=== PATIENT | female | born 1985 | race Caucasian/White ===

== ENCOUNTER → 2018-09-03 | Outpatient (CLI) | payer MEDICAID | LOC: LAB FS 09:49 | PROVIDERS: ATTEND Pediatrics | DX: E28.2 Polycystic ovarian syndrome (principal) | CPT/HCPCS: 36415; 83001; 83525 ==

== ENCOUNTER 2020-09-15 16:56 | Emergency (ER) | payer MEDICAID ==
[~2020-09-15] VITALS: Ht 162.6 cm; Wt 95.3 kg
[2020-09-15] MEDS ORDERED: fentaNYL INJ 100 MCG/2 ML AMP IVP STA ×2 (17:14→18:21)
[2020-09-15] MEDS ORDERED: KETOROLAC 30 MG/ML VIAL IVP STA (17:14)
[2020-09-15] MEDS ORDERED: ONDANSETRON 4 MG/2 ML (SDV) Z0FRAN IVP ONE (17:15)
[2020-09-15] MEDS ORDERED: NS IV 1000 ML 1,000 ML IV ONE (17:15)
[2020-09-15 17:29] LABS: BASOPHILS % (AUTO) 0 % (0-10); EOSINOPHILS # (AUTO) 0.1 10^3/uL (0.0-0.3); EOSINOPHILS % (AUTO) 1 % (0-10); HEMATOCRIT 38 % (35-52); HEMOGLOBIN 12.5 G/DL (11.5-16.0); LYMPHOCYTES # (AUTO) 2.4 X 10^3 (1.0-4.0); LYMPHOCYTES % (AUTO) 19 % (12-44); MEAN CORPUSCULAR HEMOGLOBIN 27 PG (25-34); MEAN CORPUSCULAR HGB CONC 33 G/DL (32-36); MEAN CORPUSCULAR VOLUME 81 FL (80-99); MEAN PLATELET VOLUME 11.1 FL (7.4-10.4); MONOCYTES # (AUTO) 0.5 X 10^3 (0.0-1.0); MONOCYTES % (AUTO) 4 % (0-12); NEUTROPHILS # (AUTO) 9.5 X 10^3 (1.8-7.8); NEUTROPHILS % (AUTO) 76 % (42-75); PLATELET COUNT 336 10^3/uL (130-400); WHITE BLOOD COUNT 12.6 10^3/uL (4.3-11.0)
--- NOTE | 2020-09-15 17:31 | Diagnostic Imaging Report ---
PROCEDURE: CT head without contrast. TECHNIQUE: Multiple contiguous axial images were obtained through the brain without the use of intravenous contrast. Auto Exposure Controls were utilized during the CT exam to meet ALARA standards for radiation dose reduction. INDICATION: Headache. COMPARISON: No prior studies are available for comparison. The ventricles and sulci are within normal limits. No sulcal effacement or midline shift is identified. No acute intra-axial or extra-axial hemorrhage is detected. The visualized paranasal sinuses demonstrate mucosal thickening of the ethmoid air cells. IMPRESSION: No acute intracranial process is detected. Dictated by: Dictated on workstation # [id number]
[2020-09-15 17:44] LABS: ALBUMIN 4.3 GM/DL (3.2-4.5); BILIRUBIN,TOTAL 0.2 MG/DL (0.1-1.0); CALCIUM 9.2 MG/DL (8.5-10.1); CREATININE SERUM 0.82 MG/DL (0.60-1.30); TOTAL PROTEIN 8.1 GM/DL (6.4-8.2)
--- NOTE | 2020-09-15 17:44 | ED General ---
General Chief Complaint: Head/Cervical Problems Stated Complaint: HEADACHE; COVID+ Source of Information: Patient Exam Limitations: No Limitations History of Present Illness Date Seen by Provider: Sep 15, 2020 Time Seen by Provider: 17:03 Initial Comments Here with report of headache despite ibuprofen. She states that the headache is caused vomiting. She is Covid positive with symptoms starting approximately 10 days ago. States the headache is on the left side of her head and face. She has not been able to keep anything down with the headache. Has had typical symptoms of Covid throughout the illness including fever and chills, body aches, nasal congestion, fatigue etc. Today's visit is related to the headache and vomiting. She started Medrol Dosepak today. Timing/Duration: 4-6 Hours Severity: Moderate, Severe Associated Systoms: No Chest Pain; Fever/Chills, Headaches, Nausea/Vomiting; No Shortness of Air, No Weakness Allergies and Home Medications Allergies Coded Allergies: Penicillins (Unverified Adverse Reaction, Unknown, 09/28/19) Patient Home Medication List Home Medication List Reviewed: Yes Review of Systems Review of Systems Constitutional: see HPI; No chills; fever EENTM: see HPI Respiratory: see HPI Cardiovascular: no symptoms reported Gastrointestinal: no symptoms reported; No abdominal pain; nausea, vomiting Genitourinary: no symptoms reported Musculoskeletal: No back pain; muscle pain; No neck pain Skin: no symptoms reported Psychiatric/Neurological: Headache (Left-sided and aching) Hematologic/Lymphatic: No Symptoms Reported All Other Systems Reviewed Negative Unless Noted: Yes Past Ivxhrmv-Xpihao-Fgclkt Hx Patient Social History Tobacco Use?: Yes Tobacco type used: Cigarettes Substance use?: No Alcohol Use?: No Seasonal Allergies Seasonal Allergies: No Past Medical History Gallbladder, Tubal Ligation Respiratory: No Cardiac: No Neurological: No [employer] History: Tubal Ligation Family Medical History Reviewed and Corrections made No Pertinent Family Hx Physical Exam Vital Signs Vital Signs - First Documented 09/15/20 17:03 Temp 36.2 Pulse 105 Resp 18 B/P (MAP) 145/88 (107) Pulse Ox 98 O2 Delivery Room Air Capillary Refill : Height, Weight, BMI Height: '" Weight: lbs. oz. kg; 37.00 BMI Method: General Appearance: WD/WN, Moderate Distress HEENT: PERRL/EOMI, Pharynx Normal Neck: Non Tender, Supple Respiratory: Lungs Clear, Normal Breath Sounds Cardiovascular: No Murmur, Tachycardia Gastrointestinal: Non Tender, Soft Back: Normal Inspection, No CVA Tenderness, No Vertebral Tenderness Extremity: Normal Range of Motion, Non Tender, No Calf Tenderness Neurologic/Psychiatric: Alert, Oriented x3, No Motor/Sensory Deficits, junior web developer II- XII Norm as Tested Skin: Normal Color, Warm/Dry Progress/Results/Core Measures Suspected Sepsis SIRS Temperature: Pulse: Respiratory Rate: Laboratory Tests 09/15/20 17:10: White Blood Count 12.6H Blood Pressure / Mean: Laboratory Tests 09/15/20 17:10: Creatinine 0.82, Platelet Count 336, Total Bilirubin 0.2 Results/Orders Lab Results Laboratory Tests Test 09/15/20 17:10 Range/Units White Blood Count 12.6 H 4.3-11.0 10^3/uL Red Blood Count 4.68 4.35-5.85 10^6/uL Hemoglobin 12.5 11.5-16.0 G/DL Hematocrit 38 35-52 % Mean Corpuscular Volume 81 80-99 FL Mean Corpuscular Hemoglobin 27 25-34 PG Mean Corpuscular Hemoglobin Concent 33 32-36 G/DL Red Cell Distribution Width 12.7 10.0-14.5 % Platelet Count 336 130-400 10^3/uL Mean Platelet Volume 11.1 H 7.4-10.4 FL Immature Granulocyte % (Auto) 0 % Neutrophils (%) (Auto) 76 H 42-75 % Lymphocytes (%) (Auto) 19 12-44 % Monocytes (%) (Auto) 4 0-12 % Eosinophils (%) (Auto) 1 0-10 % Basophils (%) (Auto) 0 0-10 % Neutrophils # (Auto) 9.5 H 1.8-7.8 X 10^3 Lymphocytes # (Auto) 2.4 1.0-4.0 X 10^3 Monocytes # (Auto) 0.5 0.0-1.0 X 10^3 Eosinophils # (Auto) 0.1 0.0-0.3 10^3/uL Basophils # (Auto) 0.0 0.0-0.1 10^3/uL Immature Granulocyte # (Auto) 0.0 0.0-0.1 10^3/uL D-Dimer 0.41 0.00-0.49 UG/ML Sodium Level 136 135-145 MMOL/L Potassium Level 4.0 3.6-5.0 MMOL/L Chloride Level 102 98-107 MMOL/L Carbon Dioxide Level 23 21-32 MMOL/L Anion Gap 11 5-14 MMOL/L Blood Urea Nitrogen 9 7-18 MG/DL Creatinine 0.82 0.60-1.30 MG/DL Estimat Glomerular Filtration Rate 80 BUN/Creatinine Ratio 11 Glucose Level 108 H 70-105 MG/DL Calcium Level 9.2 8.5-10.1 MG/DL Corrected Calcium 9.0 8.5-10.1 MG/DL Total Bilirubin 0.2 0.1-1.0 MG/DL Aspartate Amino Transf (AST/SGOT) 43 H 5-34 U/L Alanine Aminotransferase (ALT/SGPT) 36 0-55 U/L Alkaline Phosphatase 89 40-136 U/L C-Reactive Protein 1.07 H <0.50 MG/DL Total Protein 8.1 6.4-8.2 GM/DL Albumin 4.3 3.2-4.5 GM/DL My Orders Orders - JESSICA MATIAS MD Fentanyl Inj (Sublimaze Injection) (09/15/20 17:14) Ketorolac Injection (Toradol Injection) (09/15/20 17:14) Ed Iv/Invasive Line Start (09/15/20 17:14) Ns Iv 1000 Ml (Sodium Chloride 0.9%) (09/15/20 17:15) Cbc With Automated Diff (09/15/20 17:14) Comprehensive Metabolic Panel (09/15/20 17:14) Fibrin Degradation Products (09/15/20 17:14) Ct Head Wo (09/15/20 17:14) Ondansetron Injection (Zofran Injectio (09/15/20 17:15) Crp Fs (09/15/20 17:14) Oxymetazoline 0.05% Nasal [place] (Afrin 0. (09/15/20 21:00) Fentanyl Inj (Sublimaze Injection) (09/15/20 18:21) Oxymetazoline 0.05% Nasal [place] (Afrin 0. (09/15/20 18:28) Lorazepam Injection (Ativan Injection) (09/15/20 18:45) Medications Given in ED Current Medications Medications Dose Ordered Sig/Louann Route Start Time Stop Time Status Last Admin Dose Admin Lorazepam 0.5 mg ONCE ONCE IVP 09/15/20 18:45 09/15/20 18:46 DC 09/15/20 18:50 0.5 MG Ondansetron HCl 4 mg ONCE ONCE IVP 09/15/20 17:15 09/15/20 17:17 DC 09/15/20 17:25 4 MG Sodium Chloride 1,000 ml @ 0 mls/hr Q0M ONCE IV 09/15/20 17:15 09/15/20 17:17 DC 09/15/20 17:25 1,000 MLS/HR Vital Signs/I&O 09/15/20 17:03 Temp 36.2 Pulse 105 Resp 18 B/P (MAP) 145/88 (107) Pulse Ox 98 O2 Delivery Room Air Capillary Refill : Progress Note : Progress Note Seen and evaluated. IV, labs, normal saline 1 L bolus, Toradol 30 mg IV, fentanyl 50 mcg IV and Zofran 4 mg IV ordered. We will go ahead and get CT of the head due to severity of the headache and history of Covid. Monitor patient. 193: We did repeat fentanyl 50 mcg IV. Afrin nasal spray 3 p.o. to each nostril given. Ultimately we gave Ativan 0.5 mg IV because she was quite anxious. She is overall doing way better now. I did discuss continuation of outpatient therapy as well as medications. Discharged home with return precautions. Patient verbalized understanding of instructions and agreement with plan. Diagnostic Imaging Diagonstic Imaging: Xray Plain Films/CT/US/NM/MRI: chest Comments [facility], [place] NAME: KATELYNN VERAS [facility] REC#: [id number] PT STATUS: REG ER : 1985 PHYSICIAN: JESSICA MATIAS MD ADMIT DATE: 09/15/20/ER FS Draft Date of Exam:09/15/20 CT HEAD WO PROCEDURE: CT head without contrast. TECHNIQUE: Multiple contiguous axial images were obtained through the brain without the use of intravenous contrast. Auto Exposure Controls were utilized during the CT exam to meet ALARA standards for radiation dose reduction. INDICATION: Headache. COMPARISON: No prior studies are available for comparison. The ventricles and sulci are within normal limits. No sulcal effacement or midline shift is identified. No acute intra-axial or extra-axial hemorrhage is detected. The visualized paranasal sinuses demonstrate mucosal thickening of the ethmoid air cells. IMPRESSION: No acute intracranial process is detected. Dictated on workstation # [id number] Dict: 09/15/20 1729 Trans: 09/15/20 1731 [facility] [id number] Interpreted by: AARON SOLANO MD Electronically signed by: Departure Impression Primary Impression: COVID-19 virus infection Additional Impression: Headache Qualified Codes: R51.9 - Headache, unspecified Disposition: HOME, SELF-CARE Condition: Improved Departure-Patient Inst. Decision time for Depature: 19:35 Referrals: IKE CAMARILLO MD (PCP/Family) Primary Care Physician Patient Instructions: COVID-19 ED, Headache, Adult (DC) Add. Discharge Instructions: All discharge instructions reviewed with patient and/or family. Voiced understanding. You may take Tylenol/acetaminophen 1000 mg every 8 hours as needed for fever or pain. You may take ibuprofen 600 mg every 8 hours as needed for fever or pain. You may use Afrin nasal spray or the generic, 12 hour relief, 2 sprays to each nostril twice daily for 3 days only and then stop. Do not use more than 3 days. Follow-up with your Dr. in a few days for recheck. Drink plenty of fluids. Return for worse pain, fever, vomiting, weakness, breathing problems or other concerns as needed. Scripts Hydrocodone Bit/Acetaminophen (HYDROcodone/APAP 5 MG/325 MG TAB) 1 Tab Tab 1 TAB PO Q6H for Pain, #6 TAB 0 Refills Prov: JESSICA MATIAS MD 09/15/20 JESSICA MATIAS MD Sep 15, 2020 17:44
[2020-09-15] MEDS ORDERED: OXYMETAZOLINE (AFRIN) 0.05% NA 30 ML BTL ONE (18:28)
[2020-09-15] MEDS ORDERED: LORazepam INJ 2 MG/ML (ATIVAN) VIAL IVP ONE (18:45)
[2020-09-15] MEDS ORDERED: ACHD5005 PO (19:37)
[2020-09-15 19:53] VITALS: BP 129/72
[2020-09-15] MEDS ORDERED: OXYMETAZOLINE (AFRIN) 0.05% NA 30 ML BTL SCH (21:00)
== END 2020-09-15 19:53 | disposition home or self-care (01) ==
LOC: EDUNIT# 16:56 → ER FS 16:58
DX: U07.1 COVID-19 (principal)
CPT/HCPCS: 36415; 70450; 80053; 85025; 85379; 86141

== ENCOUNTER → 2020-11-25 | Outpatient (CLI) | payer MEDICAID ==
[~2020-11-25] MED LIST: ACHD5005 PO
--- NOTE | 2020-11-25 10:47 | Diagnostic Imaging Report ---
Indication: Fell 3 weeks ago. Left ankle pain 3 views of the left ankle were obtained with no prior studies available for comparison. There is an oblique fracture of the distal fibula at the level of the ankle joint which is in satisfactory alignment. Tibia and talus are intact. The ankle joint is not widened. IMPRESSION: There is an oblique fracture of the distal fibula which is in satisfactory alignment. No calcified callus is seen. Dictated by: Dictated on workstation # [id number]
== END ==
LOC: RAD FS 09:48
PROVIDERS: ATTEND Nurse Practitioner
DX: S82.832A Other fracture of upper and lower end of left fibula, initial encounter for closed fracture (principal); W19.XXXA Unspecified fall, initial encounter
CPT/HCPCS: 73610

== ENCOUNTER → 2020-12-09 | Outpatient (CLI) | payer MEDICAID ==
--- NOTE | 2020-12-09 09:45 | Diagnostic Imaging Report ---
EXAMINATION: Left ankle at 9:19 AM. INDICATION: Followup fracture TECHNIQUE: Three views were obtained. FINDINGS: The prior exam of 11/25/2020 noted an oblique essentially nondisplaced fracture of the distal fibula. The main fracture fragments are unchanged in alignment on this study. There is some healing callus formation present but the fracture line is still clearly visible indicating that it has not healed completely. No other fracture or acute bony abnormality is appreciated. The ankle mortise is not widened and the talar dome is smooth. The soft tissues are unremarkable. IMPRESSION: There is a healing essentially nondisplaced fracture of the distal fibula. There is no acute bony abnormality appreciated. Dictated by: Dictated on workstation # [id number]
== END ==
LOC: RAD FS 09:06
PROVIDERS: ATTEND Nurse Practitioner
DX: S82.832D Other fracture of upper and lower end of left fibula, subsequent encounter for closed fracture with routine healing (principal); X58.XXXD Exposure to other specified factors, subsequent encounter
CPT/HCPCS: 73610